=== PATIENT | male | born 1975 | race American Indian/Alaskan Native ===

== ENCOUNTER 2016-08-21 09:40 | Emergency (ER) | payer SELFPAY ==
[2016-08-21 09:52] VITALS: BP 133/97
--- NOTE | 2016-08-21 11:00 | Emergency Department Report ---
ED Male HPI - General Chief complaint: Urogenital-Male Stated complaint: POSS STD Time Seen by Provider: 08/21/16 10:25 Source: patient Mode of arrival: Ambulatory Limitations: No Limitations - History of Present Illness MD Complaint: other - Related Data Previous Rx's Medication Instructions Recorded Last Taken Type Cyclobenzaprine [Flexeril] 10 mg PO TID PRN #20 tablet 09/13/15 Unknown Rx HYDROcodone/APAP 5-325 [[place] 1 each PO Q6HR PRN #14 tablet 09/13/15 Unknown Rx 5/325] Naproxen [Naprosyn TAB] 500 mg PO BID #45 tablet 09/13/15 Unknown Rx Allergies Allergy/AdvReac Type Severity Reaction Status Date / Time No Known Allergies Allergy Unverified 09/13/15 17:14 ED Review of Systems ROS: Stated complaint: POSS STD Other details as noted in HPI ED Past Medical Hx - Past Medical History Previous Medical History?: No - Surgical History Past Surgical History?: No - Social History Smoking Status: Current Every Day Smoker Substance Use Type: Alcohol - Medications Home Medications: Home Medications Medication Instructions Recorded Confirmed Last Taken Type Cyclobenzaprine [Flexeril] 10 mg PO TID PRN #20 tablet 09/13/15 Unknown Rx HYDROcodone/APAP 5-325 [[place] 1 each PO Q6HR PRN #14 tablet 09/13/15 Unknown Rx 5/325] Naproxen [Naprosyn TAB] 500 mg PO BID #45 tablet 09/13/15 Unknown Rx ED Physical Exam - General Limitations: No Limitations ED Course Vital Signs 08/21/16 09:48 Temperature 97.7 F Pulse Rate 84 Respiratory 16 Rate Blood Pressure 133/97 O2 Sat by Pulse 99 Oximetry Critical care attestation.: If time is entered above; I have spent that time in minutes in the direct care of this critically ill patient, excluding procedure time. ED Disposition Condition: Stable Referrals: PRIMARY CARE, [Primary Care Provider] - 3-5 Days
[2016-08-21] MEDS ORDERED: FLAGYL PO ONE (11:04)
--- NOTE | 2016-08-21 17:27 | Emergency Department Report ---
Entered by RHIANNA CARDENAS, acting as scribe for DOMONIQUE CONTRERAS PA. ED Male HPI - General Chief complaint: Urogenital-Male Stated complaint: POSS STD Time Seen by Provider: 08/21/16 10:25 Source: patient Mode of arrival: Ambulatory Limitations: No Limitations - History of Present Illness Initial comments: 41 year old male with no significant PMHx presents to the ED c/o an STD exposure for 1 week. Patient states he received a phone call from his sexual partner stating that she's been diagnosed with Trichomoniasis and a UTI. Denies testicular pain, dysuria, lesions, penile discharge, nausea, and vomiting. In the last 6 months, patient notes 1 sexual partner without protection. NKDA. HERNANDEZ Complaint: other (exposure to Trichomoniasis) Onset/Timin -: week(s) Radiation: none Severity: mild Severity scale (0 -10): 0 new sexual partner denies other symptoms. denies: discharge, swelling, rash, blood in urine, dysuria, fever, nausea/vomiting, incontinence, other (abdominal pain, urgency, and frequency) - Related Data Sexually active: Yes (1 sexual partner unprotected) Previous Rx's Medication Instructions Recorded Last Taken Type Cyclobenzaprine [Flexeril] 10 mg PO TID PRN #20 tablet 09/13/15 Unknown Rx HYDROcodone/APAP 5-325 [[place] 1 each PO Q6HR PRN #14 tablet 09/13/15 Unknown Rx 5/325] Naproxen [Naprosyn TAB] 500 mg PO BID #45 tablet 09/13/15 Unknown Rx Allergies Allergy/AdvReac Type Severity Reaction Status Date / Time No Known Allergies Allergy Unverified 09/13/15 17:14 ED Review of Systems Comment: All other systems reviewed and negative Constitutional: denies: chills, fever Respiratory: denies: cough, orthopnea, shortness of breath, SOB with exertion, SOB at rest, stridor Gastrointestinal: denies: abdominal pain, nausea, vomiting Genitourinary: denies: urgency, dysuria, frequency, discharge, testicular pain ED Past Medical Hx - Past Medical History Previous Medical History?: No - Surgical History Past Surgical History?: No - Social History Smoking Status: Current Every Day Smoker Substance Use Type: Alcohol - Medications Home Medications: Home Medications Medication Instructions Recorded Confirmed Last Taken Type Cyclobenzaprine [Flexeril] 10 mg PO TID PRN #20 tablet 09/13/15 Unknown Rx HYDROcodone/APAP 5-325 [[place] 1 each PO Q6HR PRN #14 tablet 09/13/15 Unknown Rx 5/325] Naproxen [Naprosyn TAB] 500 mg PO BID #45 tablet 09/13/15 Unknown Rx ED Physical Exam - General Limitations: No Limitations General appearance: alert, in no apparent distress - Head Head exam: Present: atraumatic, normocephalic - Eye Eye exam: Present: normal appearance, EOMI Pupils: Present: normal accommodation - ENT ENT exam: Present: normal exam, mucous membranes moist - Neck Neck exam: Present: normal inspection, full ROM - Respiratory Respiratory exam: Present: normal lung sounds bilaterally. Absent: respiratory distress - Cardiovascular Cardiovascular Exam: Present: regular rate, normal rhythm. Absent: systolic murmur, diastolic murmur, rubs, gallop - GI/Abdominal GI/Abdominal exam: Present: soft. Absent: distended, tenderness - exam: Present: other (patient has some mild skin thickening and top aspect of the penile shaft appears to be scar tissue or small keloid no herpetic lesions no vesicles no discharge from urethra) - Extremities Exam Extremities exam: Present: normal inspection, full ROM - Back Exam Back exam: Present: normal inspection, full ROM - Neurological Exam Neurological exam: Present: alert, oriented X3 - Psychiatric Psychiatric exam: Present: normal affect, normal mood - Skin Skin exam: Present: warm, dry, intact. Absent: rash ED Course Vital Signs 08/21/16 09:48 Temperature 97.7 F Pulse Rate 84 Respiratory 16 Rate Blood Pressure 133/97 O2 Sat by Pulse 99 Oximetry ED Medical Decision Making - Medical Decision Making A/P: Trichomonas exposure 1-patient treated with 1 time dose of metronidazole 2-patient is requesting further STD testing but has no clinical signs of syphilis or herpes no fevers no chills no penile discharge no genitourinary lesions 3-pt has small keloid/scar tissue which has been there for several years as per patient 4-follow-up with health Department and primary care. I educated patient on safe sex and STDs ED Disposition Clinical Impression: Trichomonas exposure Disposition: DISCHARGED TO HOME OR SELFCARE Is pt being admited?: No Does the pt Need Aspirin: No Condition: Stable Instructions: Trichomoniasis (ED), Safe Sex (ED), Sexually Transmitted Diseases (ED) Additional Instructions: Patient has no clinical signs of any STDs on clinical exam or history I advised patient to follow up with health department or primary care for further testing Referrals: [facility] [Provider Group] - 3-5 Days JEFFREY SPENCE MD [Staff Physician] - 3-5 Days [facility] [Outside] - 3-5 Days [facility] [Outside] - 3-5 Days Forms: Work/School Release Form(ED) Time of Disposition: 12:05 This documentation as recorded by the THERESA leon JASMINE,accurately reflects the service I personally performed and the decisions made by ,DOMONIQUE CONTRERAS PA.
== END 2016-08-21 12:18 | disposition home or self-care (01) ==
LOC: ED 09:40
DX: Z20.2 Contact with and (suspected) exposure to infections with a predominantly sexual mode of transmission (principal); F17.200 Nicotine dependence, unspecified, uncomplicated
CPT/HCPCS: 87591; 99282